=== PATIENT | female | born 2000 | race Two or more races ===

== ENCOUNTER 2019-05-18 09:28 | Emergency (ER) | payer SELFPAY ==
[~2019-05-18] VITALS: Ht 157.5 cm; Wt 83.9 kg
[2019-05-18] MEDS ORDERED: SODIUM CHLORIDE FLUSH 10ML SYR IVF ONE (10:00)
[2019-05-18] MEDS ORDERED: MORPHINE SULFATE 4 MG/ML, 1ML IVPush PRN (10:00)
[2019-05-18] MEDS ORDERED: ONDANSETRON 2MG/ML, 2ML IVPush ONE (10:00)
[2019-05-18] MEDS ORDERED: PLEASE ENTER ALLERGIES MC SCH (10:00)
--- NOTE | 2019-05-18 10:12 | NUR ---
first contact with pt. pt has renal stent in placed one month ago in [place], increasing left flank pain. pt c/o painful urination as well. pt's aox4. resps even and unlabored. bp/spo2 monitors in place. call light within reach.
--- NOTE | 2019-05-18 10:12 | NUR ---
pt's straight cath'd using sterile tecnique. pt tolerated well. this rn walked to lab for ua.
--- NOTE | 2019-05-18 10:13 | NUR ---
us at bedside at this time.
[2019-05-18] MEDS ORDERED: MORPHINE SULFATE 4 MG/ML, 1ML ONE (10:15)
[2019-05-18] MEDS ORDERED: ONDANSETRON 2MG/ML, 2ML ONE (10:15)
--- NOTE | 2019-05-18 10:23 | NUR ---
pt medicated per emar. pt tolerated well.
[2019-05-18 10:27] LABS: BASOPHILS # (AUTO) 0.03 x10^3/uL (0-0.3); BASOPHILS % (AUTO) 0 % (0-1); EOSINOPHILS # (AUTO) 0.03 x10^3/uL (0-0.8); EOSINOPHILS % (AUTO) 0 % (1-7); LYMPHOCYTES # (AUTO) 1.79 x10^3/uL (1-6.1); LYMPHOCYTES % (AUTO) 16 % (22-44); MD NO; MEAN CORPUSCULAR HEMOGLOBIN 30.6 pg (27.0-34.8); MEAN CORPUSCULAR HGB CONC 33.5 g/dL (32.4-35.8); MEAN CORPUSCULAR VOLUME 91.3 fL (80-100); MEAN PLATELET VOLUME 7.5 fL (7.4-10.4); MONOCYTES # (AUTO) 0.35 x10^3/uL (0-1.4); MONOCYTES % (AUTO) 3 % (2-9); NEUTROPHILS # (AUTO) 9.11 x10^3/uL (1.8-8.0); NEUTROPHILS % (AUTO) 81 % (42-75); PLATELET COUNT 279 x10^3/uL (130-400); RED BLOOD COUNT 4.46 x10^6/uL (3.82-5.3); RED CELL DISTRIBUTION WIDTH 14.2 % (9.6-15.2)
[2019-05-18 10:29] LABS: CULTURE INDICATED? YES; MICROSCOPIC INDICATED
[2019-05-18 10:33] LABS: ALBUMIN 3.8 g/dL (3.4-5.0); ANION GAP 9 mmol/L (5-15); CALCIUM 8.8 mg/dL (8.5-10.1); CHLORIDE 110 mmol/L (98-107); CREATININE 0.81 mg/dL (0.55-1.02)
--- NOTE | 2019-05-18 10:39 | NUR ---
pt in xray at this time.
--- NOTE | 2019-05-18 11:12 | NUR ---
pt back to room at this time.
--- NOTE | 2019-05-18 12:01 | NUR ---
pt sleeping in [facility]. resps even and unlabored. bp/spo2 monitors in place. call light within reach.
--- NOTE | 2019-05-18 12:17 | NUR ---
FLOANTONINO RN: PT DISCHARGED HOME IN A STABLE CONDITON. DC INSTRUCTIONS WERE DISCUSSED WITH PT. PT VERBALIZED UNDERSTANDING. SCRIPT WAS GIVEN TO PT. NO QUESTIONS OR CONCERNS EXPRESSED AT THAT TIME. PT AMBULATED TO RESTROOM WITH A STEADY GAIT. RN TO WALK PT TO DC DESK ONCE PATIENT IS READY.
[2019-05-18 12:18] VITALS: BP 107/50
== END 2019-05-18 12:20 | disposition home or self-care (01) ==
LOC: ED 11:10
DX: R31.0 Gross hematuria (principal); Z90.89 Acquired absence of other organs
CPT/HCPCS: 36415; 74021; 76770; 80048; 81001; 82040; 84703; 85025; 87077; 87086; 96374; 96375; 99285; J2270; J2405; 87186